=== PATIENT | female | born 1960 | race Caucasian/White ===

== ENCOUNTER 2016-07-15 12:09 | Emergency (ER) | payer MEDICARE, MEDICAID ==
[2016-07-15 12:23] VITALS: BP 125/80
--- NOTE | 2016-07-15 12:48 | UC ---
Complaint Female HPI - HPI Summary HPI Summary: bad / strong odor of the urine x 4 weeks no urinary frequency , burning, no fever, no chills, no flank pain - History Of Current Complaint Chief Complaint: UCGU Stated Complaint: URINARY COMPLAINT Time Seen by Provider: 07/15/16 12:17 Hx Obtained From: Patient Onset/Duration: Gradual Onset, Lasting Weeks - 4, Still Present Timing: Intermittent Severity Initially: Moderate Severity Currently: Moderate Character: Not Applicable Aggravating Factor(s): Nothing Associated Signs And Symptoms: Negative: Negative, Fever, Back Pain, Vaginal Bleeding/Discharge, Vaginal Discharge, Nausea, Vomiting(# Of Episodes =), Genital Swelling, Genital Blisters, Retained Foregin Body (Specify) - Allergies/Home Medications Allergies/Adverse Reactions: Allergies Allergy/AdvReac Type Severity Reaction Status Date / Time Amitriptyline Allergy Unknown Verified 07/15/16 12:23 Reaction Details Bupropion [From Wellbutrin] Allergy Altered Verified 07/15/16 12:23 Mental Status CI Pigment Blue 63 Allergy Unknown Verified 07/15/16 12:23 [From Cymbalta] Reaction Details Duloxetine [From Cymbalta] Allergy Unknown Verified 07/15/16 12:23 Reaction Details Fluoxetine [From Prozac] Allergy See Comment Verified 07/15/16 12:23 Mirtazapine Allergy Unknown Verified 07/15/16 12:23 Reaction Details NSAIDs Allergy Unknown Verified 07/15/16 12:23 Reaction Details Paroxetine [From Paxil] Allergy See Comment Verified 07/15/16 12:23 Prazosin Allergy Unknown Verified 07/15/16 12:23 Reaction Details PMH/Surg Hx/FS Hx/Imm Hx - Additional Past Medical History Additional PMH: fibromyalgia, chronic pain syndrome - Surgical History Surgery Procedure, Year, and Place: 3 C-SECT. C5,C6 FUSION. RIGHT HAND SX REPAIR - Family History Known Family History: Negative: Seizure Disorder - Social History Alcohol Use: None Substance Use Type: None Smoking Status (MU): Former Smoker When Did the Patient Quit Smoking/Using Tobacco: 2 WKS Review of Systems Constitutional: Negative Skin: Negative Eyes: Negative ENT: Negative Respiratory: Negative Cardiovascular: Negative Gastrointestinal: Negative Genitourinary: Negative Motor: Negative Neurovascular: Negative Musculoskeletal: Arthralgia, Myalgia Neurological: Weakness Psychological: Negative All Other Systems Reviewed And Are Negative: Yes Physical Exam Triage Information Reviewed: Yes Appearance: Pain Distress, Thin Vital Signs: Initial Vital Signs Temp 98.0 F 07/15/16 12:19 Pulse 85 07/15/16 12:19 Resp 18 07/15/16 12:19 BP 125/80 07/15/16 12:19 Pulse Ox 99 07/15/16 12:19 Vital Signs Reviewed: Yes Eyes: Positive: Conjunctiva Clear ENT: Positive: Normal ENT inspection, Hearing grossly normal, Pharynx normal Neck: Positive: Supple, Nontender, No Lymphadenopathy Respiratory: Positive: Chest non-tender, Lungs clear, Normal breath sounds Cardiovascular: Positive: RRR, No Murmur, Pulses Normal Abdominal Exam: Normal Abdomen Description: Positive: Nontender, Soft. Negative: CVA Tenderness (R), CVA Tenderness (L), Distended, Guarding Bowel Sounds: Positive: Present Skin Exam: Normal Complaint Female Dx - Differential Dx/Diagnosis Provider Diagnoses: uti Discharge - Discharge Plan Condition: Stable Disposition: HOME Prescriptions: Sulfamethox/Trimethoprim DS* [Bactrim DS 800/160 TAB*] 1 tab PO BID #14 tab Patient Education Materials: Urinary Tract Infection in Women (ED) Referrals: PHILIP Vasques [Primary Care Provider] - 7 Days
== END 2016-07-15 13:04 | disposition home or self-care (01) ==
LOC: UCCORT 12:09
DX: N39.0 Urinary tract infection, site not specified (principal)
CPT/HCPCS: 81003; 87077; 87086; 87186; 99211; G0463

== ENCOUNTER 2016-09-02 13:48 | Emergency (ER) | payer MEDICARE, MEDICAID ==
[2016-09-02 14:25] VITALS: BP 99/73
--- NOTE | 2016-09-02 14:29 | UC ---
Complaint Female HPI - HPI Summary HPI Summary: 56 year old female presents with complains of urinary frequency, urgency, and supra pubic pain. - History Of Current Complaint Chief Complaint: UCGU Stated Complaint: URINARY Time Seen by Provider: 09/02/16 14:28 - Allergies/Home Medications Allergies/Adverse Reactions: Allergies Allergy/AdvReac Type Severity Reaction Status Date / Time Amitriptyline Allergy Unknown Verified 09/02/16 14:25 Reaction Details Bupropion [From Wellbutrin] Allergy Altered Verified 09/02/16 14:25 Mental Status CI Pigment Blue 63 Allergy Unknown Verified 09/02/16 14:25 [From Cymbalta] Reaction Details Duloxetine [From Cymbalta] Allergy Unknown Verified 09/02/16 14:25 Reaction Details Fluoxetine [From Prozac] Allergy See Comment Verified 09/02/16 14:25 Mirtazapine Allergy Unknown Verified 09/02/16 14:25 Reaction Details NSAIDs Allergy Unknown Verified 09/02/16 14:25 Reaction Details Paroxetine [From Paxil] Allergy See Comment Verified 09/02/16 14:25 Prazosin Allergy Unknown Verified 09/02/16 14:25 Reaction Details PMH/Surg Hx/FS Hx/Imm Hx - Surgical History Surgical History: Yes Surgery Procedure, Year, and Place: 3 C-SECT. C5,C6 FUSION. RIGHT HAND SX REPAIR - Family History Known Family History: Negative: Seizure Disorder - Social History Alcohol Use: None Substance Use Type: None Smoking Status (MU): Former Smoker When Did the Patient Quit Smoking/Using Tobacco: 2016 Review of Systems Constitutional: Negative Skin: Negative Eyes: Negative ENT: Negative Respiratory: Negative Cardiovascular: Negative Gastrointestinal: Negative Genitourinary: Dysuria, Frequency, Urgency Motor: Negative Neurovascular: Negative Musculoskeletal: Negative Neurological: Negative Psychological: Negative All Other Systems Reviewed And Are Negative: Yes Physical Exam Triage Information Reviewed: Yes Vital Signs: Initial Vital Signs Temp 36.9 C 09/02/16 14:20 Pulse 84 09/02/16 14:20 Resp 16 09/02/16 14:20 BP 99/73 09/02/16 14:20 Pulse Ox 98 09/02/16 14:20 Eye Exam: Normal ENT Exam: Normal Dental Exam: Normal Neck exam: Normal Neck: Positive: 1 Respiratory Exam: Normal Cardiovascular Exam: Normal Abdominal Exam: Normal Musculoskeletal Exam: Normal Neurological Exam: Normal Psychological Exam: Normal Skin Exam: Normal Complaint Female Dx - Differential Dx/Diagnosis Provider Diagnoses: dysuria Discharge - Discharge Plan Condition: Stable Disposition: HOME Prescriptions: Sulfamethox/Trimethoprim DS* [Bactrim DS 800/160 TAB*] 1 tab PO BID #10 tab Patient Education Materials: Urinary Tract Infection in Women (ED) Referrals: Rocio Boles MD [Primary Care Provider] - Reed Fleming MD,Yang Kaba [Medical Doctor] -
== END 2016-09-02 14:50 | disposition home or self-care (01) ==
LOC: UCCORT 13:48
DX: R30.0 Dysuria (principal); Z88.6 Allergy status to analgesic agent; Z88.8 Allergy status to other drugs, medicaments and biological substances; Z87.891 Personal history of nicotine dependence
CPT/HCPCS: 81003; 87077; 87086; 87186; 99212; G0463